=== PATIENT | male | born 1955 | race American Indian/Alaskan Native ===

== ENCOUNTER 2020-05-31 20:58 | Emergency (ER) | payer MEDICARE ==
--- NOTE | 2020-05-31 21:17 | Emergency Department Report ---
ED General Adult HPI - General Chief complaint: Tube Replacement Stated complaint: PEG TUBE REPLACEMENT PUI?: No Time Seen by Provider: 05/31/20 21:07 Source: patient Mode of arrival: Stretcher Limitations: Altered Mental Status - History of Present Illness Initial comments: Patient is a 64-year-old [facility] emergency room to have his PEG tube change. Patient brought in by EMS. Patient is currently a resident at [facility]. I reviewed the chart that came with the patient. I discussed with the patient's nurse at the home the concerns for the feeding tube and the nurse states that it is old and she would like it to be changed. The nurse states that the tube is functioning well and there is no leaking or problem with the tube. The nurse states that she spoke with the on-call physician and the physician told her to send her to the emergency room in order to have the PEG tube changed even though it is still fully functional. The nurse states that the patient is on continuous feeds 24 hours a day. The nurse states that the patient has not missed any feeds and has not have any problem receiving his feeds. Nurse states that his residuals are low. The nurse states that she is able to flush the tube and push the meds through the tube without difficulty or problems. The nurse states that the patient is not having any symptoms or pain. The nurse states the patient is not in any distress. The nurse denies tube leaking. The nurse denies malfunctioning tube. The nurse denies any cough or fever. Patient is able to answer yes/no questions. Patient denies pain. Patient denies any complaints. Patient denies pain around the tube. -: Sudden ED Review of Systems ROS: Stated complaint: PEG TUBE REPLACEMENT Other details as noted in HPI Comment: All other systems reviewed and negative ED Past Medical Hx - Past Medical History Previous Medical History?: Yes Hx Hypertension: Yes Hx CVA: Yes (Hemiplegia and the patient is aphasic) Hx Heart Attack/AMI: No Hx Diabetes: Yes Hx GERD: Yes Additional medical history: PEG tube, hyperlipidemia, vitamin D deficiency, quadriplegia, hemiplegia, aphasia since his stroke - Surgical History Past Surgical History?: Yes Additional Surgical History: PEG tube - Family History Family history: no significant - Social History Smoking Status: Never Smoker Substance Use Type: None ED Physical Exam - General Limitations: Altered Mental Status, Physical Limitation General appearance: alert, in no apparent distress - Head Head exam: Present: atraumatic, normocephalic - Eye Eye exam: Present: normal appearance, PERRL Pupils: Present: normal accommodation - ENT ENT exam: Present: mucous membranes moist - Neck Neck exam: Present: normal inspection - Respiratory Respiratory exam: Present: normal lung sounds bilaterally. Absent: respiratory distress - Cardiovascular Cardiovascular Exam: Present: regular rate, normal rhythm. Absent: systolic murmur, diastolic murmur, rubs, gallop - GI/Abdominal GI/Abdominal exam: Present: soft, normal bowel sounds, other (G-tube is functional and flushes without difficulty. No leaking noted.). Absent: distended, tenderness, guarding - Rectal Rectal exam: Present: deferred - Extremities Exam Extremities exam: Present: normal inspection - Back Exam Back exam: Present: normal inspection - Neurological Exam Neurological exam: Present: alert, oriented X3, other (Patient is nonverbal but answers yes/no questions. Patient is answers questions appropriately.) - Psychiatric Psychiatric exam: Present: normal affect, normal mood - Skin Skin exam: Present: warm, dry, intact, normal color. Absent: rash ED Course - Reevaluation(s) Reevaluation #1: Patient does not require any further emergency medical services. Patient can have his tubes as an outpatient. Patient's G-tube was flushed without difficulty. No leaking at the site noted. No problems noted with the G-tube. I discussed all clinical findings with patient. I discussed plan of care with patient. Patient agrees with plan of care. Patient is stable for discharge. Patient will be discharged home to his long-term. Patient given discharge instructions. Patient voiced understanding of discharge instructions. 05/31/20 21:27 ED Medical Decision Making - Medical Decision Making Patient is a 64-year-old male that presents emergency room for a PEG tube change. The PEG tube is functional and flushed without difficulty. While flushing no leaking was noted. I discussed the case with the bedside nurse at the nursing facility and she states that the tube was fully functional was just old. The nurse states there was no leaking at the site or difficulties flushing or difficulties feeding the patient. The nurse states that she was able to pass the meds through the tube without difficulty. Patient does not require any further emergency medical services. Patient on medical clearing exam. Patient is medically cleared and will be discharged back to her long-term for further evaluation and treatment. Patient can have his PEG tube changed as needed as an outpatient. - Differential Diagnosis Tube change. PEG tube Critical care attestation.: If time is entered above; I have spent that time in minutes in the direct care of this critically ill patient, excluding procedure time. ED Disposition Clinical Impression: PEG (percutaneous endoscopic gastrostomy) status, Encounter for PEG (percutaneous endoscopic gastrostomy) Disposition: [id number] ANOTHER TYPE HLTHCARE Is pt being admited?: No Does the pt Need Aspirin: No Condition: Stable Instructions: PEG Tube Home Guide, [id number] Additional Instructions: Patient to follow-up with primary care in 2 to 3 days. Patient to follow-up with gastroenterology in 2 to 3 days. Patient to rest. Patient to increase water. Patient to be discharged from the ER back to his long-term. Patient to continue all medications. Patient to continue tube feeds as previously directed. Patient to return to the ER if condition worsens, changes or new symptoms arise. Referrals: JEFF TAM MD [Staff Physician] - 2-3 Days Time of Disposition: 21:31
[2020-05-31 22:23] VITALS: BP 122/78
== END 2020-06-01 01:15 | disposition other institution (70) ==
LOC: ED 20:58
DX: Z93.1 Gastrostomy status (principal); I10 Essential (primary) hypertension; E11.9 Type 2 diabetes mellitus without complications; K21.9 Gastro-esophageal reflux disease without esophagitis